=== PATIENT | female | born 1950 | race Two or more races ===

== ENCOUNTER 2016-10-02 19:41 | Inpatient (IN) | payer MEDICAID ==
[~2016-10-02] VITALS: Ht 157.5 cm; Wt 60.8 kg
[2016-10-02 20:10] LABS: Basophils # (auto) 0.1 uL; Basophils % (auto) 0.8 % (0.0-2.0); DEFINITIVE VIEW TRANSMISSION; Eosinophils # (auto) 0.9 uL; Eosinophils % (auto) 11.2 % (0.0-7.0); Hematocrit 39.8 % (36.0-46.0); Hemoglobin 13.3 g/dL (12.2-16.2); Lymphocytes # (auto) 2.7 uL; Lymphocytes % (auto) 34.2 % (10.0-50.0); Mean Corpuscular Hgb Conc. 33.4 g/dL (32.0-36.0); Mean Corpuscular Volume 86.9 fL (80.0-100.0); Mean Platelet Volume 9.1 fL (7.4-10.4); Monocytes # (auto) 0.6 uL; Monocytes % (auto) 8.1 % (0.0-12.0); Neutrophils # (auto) 3.7 uL; Neutrophils % (auto) 45.7 % (37.0-80.0); Platelet Count (auto) 306 10^3/uL (140-450); Red Cell Distribution Width 13.5 % (11.6-16.0)
[2016-10-02 20:26] LABS: INR 1.04 (0.9-1.15); Partial Thromboplastin Time 24.7 sec (22.64-33.71); Prothrombin Time 10.7 sec (9.37-12.3)
[2016-10-02 20:41] LABS: Albumin 3.7 g/dL (3.4-5.0); Anion Gap 11 (5-15); Aspartate Aminotransferase 26 U/L (15-37); BUN/Creatinine Ratio 13.8; Blood Urea Nitrogen 17 mg/dL (7-18); Calcium 8.6 mg/dL (8.5-10.1); Carbon Dioxide 25 mmol/L (21-32); Chloride 108 mmol/L (98-107); GFR African American 56 mL/min; GFR Non-African American 47 mL/min; Glucose 109 mg/dL (74-106); Potassium 4.1 mmol/L (3.5-5.1); Sodium 144 mmol/L (136-145)
[2016-10-02 20:46] LABS: Alkaline Phosphatase 85 U/L (45-117); Bilirubin, Total 0.2 mg/dL (0.2-1.0); Total Protein 7.3 g/dL (6.4-8.2)
[2016-10-02 21:06] LABS: B-Type Natriuretic Peptide 17.21 pg/mL (0-100)
[2016-10-02] MEDS ORDERED: cloNIDine HCL 0.1 MG TAB PO ONE (22:00)
[2016-10-03] MEDS ORDERED: SODIUM CHLORIDE 0.9% 1,000 ML IV SCH (07:02)
[2016-10-03] MEDS ORDERED: ACETAMINOPHEN 325 MG TAB PO PRN (07:15)
[2016-10-03] MEDS ORDERED: HYDROcodone-ACET 5/325MG TAB PO PRN ×2 (07:15→07:30)
[2016-10-03] MEDS ORDERED: ONDANSETRON HCL 4 MG/2 ML VIAL IV PRN ×2 (07:15→07:30)
[2016-10-03] MEDS ORDERED: NITROGLYCERIN 0.4 MG SL TAB SL PRN (07:30)
[2016-10-03] MEDS ORDERED: DEXTROSE (50%) 50ML SYRG IV PRN (07:30)
[2016-10-03] MEDS ORDERED: MORPHINE SULF INJ 2 MG/ML SYRINGE 1ML IV PRN (07:30)
[2016-10-03] MEDS ORDERED: TEMAZEPAM 15 MG CAP PO PRN (07:30)
[2016-10-03] MEDS ORDERED: ATENOLOL 50 MG TAB PO SCH (10:00)
[2016-10-03] MEDS ORDERED: LEVOFLOXACIN 500 MG TAB PO SCH (10:00)
[2016-10-03] MEDS ORDERED: LOSARTAN POTASSIUM 25 MG TAB PO SCH (10:00)
[2016-10-03] MEDS ORDERED: PANTOPRAZOLE SODIUM 40 MG/10 ML VIAL IV SCH (10:00)
[2016-10-03] MEDS ORDERED: FAMOTIDINE 20 MG TAB PO SCH (10:00)
[2016-10-03 10:02] LABS: Urine Bilirubin Negative (Negative); Urine Blood Negative /uL (Negative); Urine Color Yellow (Yellow); Urine Glucose Normal (Normal); Urine Ketone Negative (Negative); Urine Mucus FEW (None Seen); Urine Nitrite Negative (Negative); Urine RBC 1 /hpf (0 - 4); Urine Squamous Epithelial Cell FEW /hpf (<5); Urine Urobilinogen Normal (Negative)
[2016-10-03] MEDS: LOSARTAN POTASSIUM 50 MG TAB PO SCH (11:39)
[2016-10-03] MEDS: HCTZ 25 MG TAB PO SCH (11:41)
[2016-10-03] MEDS: ENOXAPARIN SOD 40 MG/0.4 ML SYRINGE SC SCH (11:41)
[2016-10-03] MEDS ORDERED: OMEP20CA5 PO (11:42)
[2016-10-03] MEDS ORDERED: LOSA100T27 PO (11:42)
[2016-10-03] MEDS ORDERED: HCTZ25T PO (11:42)
[2016-10-03] MEDS ORDERED: ASPI81CH43 PO (11:42)
[2016-10-03] MEDS ORDERED: METF-312 PO (11:42)
[2016-10-03 11:43] VITALS: BP 141/84
[2016-10-03] MEDS: InsuLIN REG 1unit/0.01ml Soln (100units/ml) SC SCH ×3 (12:00→23:45)
[2016-10-03] MEDS: ACCU-CHEK COMFORT CURVE STRIP VI SCH ×3 (12:00→23:45)
[2016-10-03] MEDS: ACETAMINOPHEN 325 MG TAB PO PRN ×2 (13:27→14:31)
[2016-10-03] MEDS ORDERED: PANTOPRAZOLE 40 MG TAB PO ONE (13:30)
[2016-10-03 16:54] VITALS: BP 140/70
[2016-10-03 20:00] VITALS: BP 145/95
[2016-10-03 21:30] VITALS: BP 145/95
[2016-10-03] MEDS ORDERED: PATIENTS OWN MEDICATION (simvastatin 20 MG) PO SCH ×2 (22:00)
[2016-10-03] MEDS ORDERED: PATIENTS OWN MEDICATION (simvastatin 40 MG) PO SCH ×2 (22:00)
[2016-10-03] MEDS: PRAVASTATIN SODIUM 20 MG TAB PO SCH (23:40)
[2016-10-04 05:00] VITALS: BP 140/75
[2016-10-04] MEDS: InsuLIN REG 1unit/0.01ml Soln (100units/ml) SC SCH ×3 (06:00→18:00)
[2016-10-04] MEDS: ACCU-CHEK COMFORT CURVE STRIP VI SCH ×3 (06:24→18:38)
[2016-10-04 06:35] LABS: DEFINITIVE VIEW TRANSMISSION; Hemoglobin 14.2 g/dL (12.2-16.2); Mean Corpuscular Volume 87.9 fL (80.0-100.0); Mean Platelet Volume 9.9 fL (7.4-10.4); Platelet Count (auto) 307 10^3/uL (140-450); Red Cell Distribution Width 13.7 % (11.6-16.0); White Blood Cell 6.6 10^3/uL (4.4-10.8)
[2016-10-04 06:43] LABS: Metamyelocytes % 0; Myelocytes % 0; Promyelocytes % 0; Reactive Lymphocytes 0
[2016-10-04 07:00] LABS: Albumin 3.7 g/dL (3.4-5.0); Bilirubin, Total 0.5 mg/dL (0.2-1.0); Calcium 9.2 mg/dL (8.5-10.1); Potassium 3.7 mmol/L (3.5-5.1); Total Protein 7.3 g/dL (6.4-8.2)
[2016-10-04] MEDS ORDERED: LEVOTHYROXINE SODIUM 88 MCG TAB PO SCH (07:00)
[2016-10-04 07:30] VITALS: BP 145/95
[2016-10-04 09:00] VITALS: BP 186/77
[2016-10-04 09:06] LABS: Platelet Estimate Adequate
[2016-10-04] MEDS: ACETAMINOPHEN 325 MG TAB PO PRN (09:06)
[2016-10-04 09:07] LABS: RBC Morphology Normal
[2016-10-04] MEDS: HCTZ 25 MG TAB PO SCH (09:07)
[2016-10-04] MEDS: LOSARTAN POTASSIUM 50 MG TAB PO SCH (09:07)
[2016-10-04] MEDS: ENOXAPARIN SOD 40 MG/0.4 ML SYRINGE SC SCH (09:08)
[2016-10-04] MEDS ORDERED: PANTOPRAZOLE 40 MG TAB PO SCH (10:00)
[2016-10-04 13:00] VITALS: BP 133/70
[2016-10-04 17:00] VITALS: BP 167/67
[2016-10-04] MEDS: PRAVASTATIN SODIUM 20 MG TAB PO SCH (21:55)
[2016-10-04] MEDS: PANTOPRAZOLE 40 MG TAB PO SCH (21:56)
[2016-10-04 22:00] VITALS: BP 136/81
[2016-10-05 05:00] VITALS: BP 149/78
[2016-10-05] MEDS: InsuLIN REG 1unit/0.01ml Soln (100units/ml) SC SCH ×4 (06:00→17:44)
[2016-10-05] MEDS: ACCU-CHEK COMFORT CURVE STRIP VI SCH ×4 (06:10→17:44)
[2016-10-05 08:00] VITALS: BP 157/82
[2016-10-05 09:00] VITALS: BP 157/82
[2016-10-05] MEDS ORDERED: ADENOSINE 51 MG in GIVE UN-DILUTED 0 ML IV ONE (09:00)
[2016-10-05] MEDS: LOSARTAN POTASSIUM 50 MG TAB PO SCH (11:15)
[2016-10-05] MEDS: HCTZ 25 MG TAB PO SCH (11:16)
[2016-10-05] MEDS: PANTOPRAZOLE 40 MG TAB PO SCH ×2 (11:18→21:51)
[2016-10-05] MEDS: ENOXAPARIN SOD 40 MG/0.4 ML SYRINGE SC SCH (11:18)
[2016-10-05 13:00] VITALS: BP 137/82
[2016-10-05 14:37] LABS: Basophils # (auto) 0 uL; Basophils % (auto) 0.5 % (0.0-2.0); DEFINITIVE VIEW TRANSMISSION; Eosinophils % (auto) 12.4 % (0.0-7.0); Hematocrit 44.2 % (36.0-46.0); Hemoglobin 14.8 g/dL (12.2-16.2); Lymphocytes # (auto) 2.3 uL; Lymphocytes % (auto) 27.4 % (10.0-50.0); Mean Corpuscular Hemoglobin 29.2 pg (28.0-32.0); Mean Corpuscular Hgb Conc. 33.5 g/dL (32.0-36.0); Mean Corpuscular Volume 87.2 fL (80.0-100.0); Mean Platelet Volume 9.3 fL (7.4-10.4); Monocytes # (auto) 0.7 uL; Monocytes % (auto) 7.8 % (0.0-12.0); Neutrophils # (auto) 4.4 uL; Neutrophils % (auto) 51.9 % (37.0-80.0); Platelet Count (auto) 325 10^3/uL (140-450); Red Cell Distribution Width 13.3 % (11.6-16.0); White Blood Cell 8.4 10^3/uL (4.4-10.8)
[2016-10-05 14:53] LABS: Albumin 4.1 g/dL (3.4-5.0); BUN/Creatinine Ratio 13.2; Calcium 8.9 mg/dL (8.5-10.1); Potassium 4.2 mmol/L (3.5-5.1)
[2016-10-05 14:56] LABS: Bilirubin, Total 0.5 mg/dL (0.2-1.0); Total Protein 8.1 g/dL (6.4-8.2)
[2016-10-05 17:00] VITALS: BP 152/80
[2016-10-05] MEDS: PRAVASTATIN SODIUM 20 MG TAB PO SCH (21:51)
[2016-10-05 22:00] VITALS: BP 137/70
[2016-10-06] MEDS: ACCU-CHEK COMFORT CURVE STRIP VI SCH ×3 (00:08→11:55)
[2016-10-06 05:34] VITALS: BP 157/79
[2016-10-06] MEDS: InsuLIN REG 1unit/0.01ml Soln (100units/ml) SC SCH ×3 (05:57→11:55)
[2016-10-06] MEDS ORDERED: SODIUM CHLORIDE LOCK 10 ML ONE (08:22)
[2016-10-06] MEDS ORDERED: LIDOCAINE VISCOUS 2% 15ML UD ONE (08:22)
[2016-10-06] MEDS ORDERED: diphenhdrAMINE HCL 50 MG/1 ML VL ONE (08:23)
[2016-10-06 08:58] VITALS: BP 181/81
[2016-10-06] MEDS: LOSARTAN POTASSIUM 50 MG TAB PO SCH (09:36)
[2016-10-06] MEDS: HCTZ 25 MG TAB PO SCH (09:36)
[2016-10-06] MEDS: PANTOPRAZOLE 40 MG TAB PO SCH (09:37)
[2016-10-06] MEDS: ENOXAPARIN SOD 40 MG/0.4 ML SYRINGE SC SCH (09:37)
[2016-10-06] MEDS: fentaNYL CITRATE 100 MCG/2 ML VL ONE ×2 (11:32→11:35)
[2016-10-06] MEDS: MIDAZOLAM HCL 5 MG/ML-1ML VIAL ONE ×2 (11:32→11:35)
[2016-10-06 14:00] VITALS: BP 147/76
[2016-10-06 16:10] VITALS: BP 147/76
== END 2016-10-06 19:25 | disposition home or self-care (01) | DRG 203 ==
LOC: ER 19:51 → TELE 19:52 → TELE-E-ADS 10-03 10:10 → TELE-EAST 10-03 14:48
PROVIDERS: ADMIT Internal Medicine; ATTEND Internal Medicine
PROC: 0DB68ZX Excision of Stomach, Via Natural or Artificial Opening Endoscopic, Diagnostic (ICD-10-PCS; 2016-10-06)
PROC: 0DB48ZX Excision of Esophagogastric Junction, Via Natural or Artificial Opening Endoscopic, Diagnostic (ICD-10-PCS; principal; 2016-10-06 11:28)
DX: R07.89 Other chest pain (principal); E11.22 Type 2 diabetes mellitus with diabetic chronic kidney disease; N18.3 Chronic kidney disease, stage 3 (moderate); K29.60 Other gastritis without bleeding; I51.7 Cardiomegaly; K21.9 Gastro-esophageal reflux disease without esophagitis; I12.9 Hypertensive chronic kidney disease with stage 1 through stage 4 chronic kidney disease, or unspecified chronic kidney disease; E78.5 Hyperlipidemia, unspecified; J98.11 Atelectasis; Z82.49 Family history of ischemic heart disease and other diseases of the circulatory system; Z83.3 Family history of diabetes mellitus; Z80.9 Family history of malignant neoplasm, unspecified; Z98.890 Other specified postprocedural states; Z90.710 Acquired absence of both cervix and uterus
CPT/HCPCS: 36415; 43239; 71010; 78452; 80053; 81001; 82962; 83690; 83735; 83880; 84443; 84484; 85007; 85025; 85027; 85379; 85610; 85730; 93005; 93017; 93306; J0153; J2250; J2405

== ENCOUNTER 2020-08-06 10:16 | Emergency (ER) | payer MEDICAID ==
[~2020-08-06] VITALS: Ht 162.6 cm; Wt 65.8 kg
[~2020-08-06 10:16] MED LIST: ASPI81CH43 PO; HCTZ25T PO; LOSA-39 PO; METF-370 PO; OMEP20CA74 PO
[2020-08-06 10:30] VITALS: BP 153/72
[2020-08-06] MEDS ORDERED: ASPirin 81 mg TAB PO ONE (10:45)
[2020-08-06 11:26] LABS: Hematocrit 42.9 % (36.0-46.0); Hemoglobin 14.4 g/dL (12.2-16.2); Mean Corpuscular Hemoglobin 29.1 pg (28.0-32.0); Mean Corpuscular Hgb Conc. 33.5 g/dL (32.0-36.0); Mean Corpuscular Volume 86.9 fL (80.0-100.0); Platelet Count (auto) 430 10^3/uL (140-450); Red Blood Cells 4.94 10^6/uL (4.0-5.20); White Blood Cell 10.5 10^3/uL (4.4-10.8)
[2020-08-06 11:33] LABS: INR 1.03 (0.9-1.15); Partial Thromboplastin Time 22.4 sec (23.0-31.2)
[2020-08-06 11:34] LABS: Albumin 3.7 g/dL (3.4-5.0); Anion Gap 4 (5-15); Blood Urea Nitrogen 21 mg/dL (7-18); Calcium 8.8 mg/dL (8.5-10.1); Carbon Dioxide 29 mmol/L (21-32); Chloride 106 mmol/L (98-107); Glucose 100 mg/dL (74-106); Potassium 4.1 mmol/L (3.5-5.1); Sodium 139 mmol/L (136-145)
[2020-08-06 11:39] LABS: Alanine Aminotransferase 30 U/L (13-56); Alkaline Phosphatase 98 U/L (45-117); Aspartate Aminotransferase 14 U/L (15-37); BUN/Creatinine Ratio 22.6; Bilirubin, Total 0.8 mg/dL (0.2-1.0); GFR African American 77 mL/min; GFR Non-African American 64 mL/min; Total Protein 7.8 g/dL (6.4-8.2)
[2020-08-06 11:59] LABS: Band Neutrophils % (manual) 0; Basophils % (manual) 0 (0.0-2.0); Blast Cells 0; Eosinophils % (manual) 0 (0-7); Metamyelocytes % 0; Myelocytes % 0; Promyelocytes % 0; Reactive Lymphocytes 0
[2020-08-06 13:33] LABS: Lymphocytes % (manual) 14 (10.0-50.0); Monocytes % (manual) 3 (0-12)
[2020-08-07] MEDS ORDERED: NITROGLYCERIN 0.4 MG SL TAB SL ONE (10:00)
== END 2020-08-06 13:30 | disposition home or self-care (01) ==
LOC: ER 10:16
DX: R07.89 Other chest pain (principal); F41.9 Anxiety disorder, unspecified; I10 Essential (primary) hypertension; E11.9 Type 2 diabetes mellitus without complications; Z90.710 Acquired absence of both cervix and uterus; Z20.828 Contact with and (suspected) exposure to other viral communicable diseases
CPT/HCPCS: 36415; 71045; 80053; 83880; 84484; 85007; 85027; 85610; 85730; 87426